=== PATIENT | male | born 1975 | race Caucasian/White ===

== ENCOUNTER 2023-08-31 20:22 | Emergency (ER) | payer MEDICAID ==
[~2023-08-31] VITALS: Ht 182.9 cm; Wt 89.9 kg
[2023-08-31 20:23] VITALS: BP 157/85; PULSE 112; TEMP 98.3; O2SAT 100
[2023-08-31 21:09] VITALS: RESP 12
[2023-08-31] MEDS ORDERED: CefTRIAXone 500MG IM Kit w/LIDOcaine IM ONE (21:50)
[2023-08-31] MEDS ORDERED: DOXY100C43 PO (21:54)
== END 2023-08-31 22:39 | disposition home or self-care (01) ==
LOC: ER 20:24
DX: N45.1 Epididymitis (principal)
CPT/HCPCS: 76870; 93976; 96372; 99285; J0696